=== PATIENT | female | born 1965 | race Caucasian/White ===

== ENCOUNTER 2016-06-11 17:10 | Emergency (ER) | payer MEDICARE ==
[2016-06-11] MEDS ORDERED: cefTRIAXone VIAL(*) 1,000 MG VIAL IM ONE (18:40)
[2016-06-11] MEDS ORDERED: Furosemide TAB* 40 MG PO ONE (18:41)
[2016-06-11] MEDS ORDERED: Furosemide TAB* 20 MG ONE (18:46)
[2016-06-11] MEDS ORDERED: Lidocaine 1% MPF* 2 ML VIAL ONE (18:47)
--- NOTE | 2016-06-11 18:58 | UC ---
Lower Extremity/Ankle HPI - HPI Summary HPI Summary: patient presents with bilateral swollen ankles and lower legs from the knee down , she does have a scab on the left leg which is where the infection may have started. Pt has HX of CHF, COPD, DM. denies any increase SOB. has neuropathy - History of Current Complaint Chief Complaint: UCLowerExtremity Stated Complaint: LEG PAIN Time Seen by Provider: 06/11/16 18:20 Hx Obtained From: Patient Hx Last Menstrual Period: 10yrs ?: No Onset/Duration: Sudden Onset, Lasting Days Severity Initially: Mild Severity Currently: Severe Pain Intensity: 4 Pain Scale Used: 0-10 Numeric Aggravating Factor(s): Standing, Ambulation Able to Bear Weight: Yes - Risk Factors Gout Risk Factors: Diabetes, Hypertension, Renal Disease, Peripherial Vascular Disease DVT Risk Factors: Smoking - Allergies/Home Medications Allergies/Adverse Reactions: Allergies Allergy/AdvReac Type Severity Reaction Status Date / Time Paroxetine Allergy Unknown Verified 06/11/16 18:22 Reaction Details Penicillins Allergy Unknown Verified 06/11/16 18:22 Reaction Details seasonal allergies Allergy Runny Nose Uncoded 06/11/16 18:22 Home Medications: Home Medications Budesonide NEB* [Pulmicort NEB*] 0.5 mg INH BID 06/11/16 [History Confirmed ] Ibuprofen TAB* [Advil TAB*] 800 mg PO Q6H PRN 06/11/16 [History Confirmed ] PMH/Surg Hx/FS Hx/Imm Hx Previously Healthy: Yes Endocrine History Of: Reports: Diabetes - takes Metformin Respiratory History Of: Reports: COPD, Bronchitis, Pneumonia Psychological History Of: Reports: Anxiety - Surgical History Surgical History: Yes Surgery Procedure, Year, and Place: Left foot x 3, last was 2010 - Family History Known Family History: Positive: Unknown, Hypertension - Social History Alcohol Use: None Alcohol Amount: none in 1 year Substance Use Type: None Substance Use Comment - Amount & Last Used: "CLEAN" FROM PAIN PILLS X 4 MOS Smoking Status (MU): Former Smoker Type: eCigarettes Amount Used/How Often: 1/3 PPD Length of Time of Smoking/Using Tobacco: 36 Years Have You Smoked in the Last Year: Yes When Did the Patient Quit Smoking/Using Tobacco: 8 MOS Household Exposure Type: Cigarettes - Immunization History Most Recent Influenza Vaccination: 8604-3421 Most Recent Tetanus Shot: unk Most Recent Pneumonia Vaccination: 2013 Review of Systems Constitutional: Negative Skin: Other - redness and bilateral swelling Eyes: Negative ENT: Negative Respiratory: Negative Cardiovascular: Negative Gastrointestinal: Negative Genitourinary: Negative Motor: Weakness Neurovascular: Decreased Sensation Musculoskeletal: Arthralgia, Decreased ROM, Edema, Myalgia Neurological: Negative Psychological: Negative All Other Systems Reviewed And Are Negative: Yes Physical Exam Triage Information Reviewed: Yes Appearance: Well-Nourished, Ill-Appearing, Pain Distress Vital Signs: Initial Vital Signs Temp 99.2 F 06/11/16 18:13 Pulse 96 06/11/16 18:13 Resp 20 06/11/16 18:13 BP 134/75 06/11/16 18:13 Pulse Ox 91 06/11/16 18:13 Vital Signs Reviewed: Yes Eye Exam: Normal Eyes: Positive: Conjunctiva Clear ENT Exam: Normal ENT: Positive: Normal ENT inspection, Hearing grossly normal, Pharynx normal, TMs normal Dental Exam: Normal Neck exam: Normal Neck: Positive: Supple, Nontender, No Lymphadenopathy Respiratory Exam: Normal Respiratory: Positive: Chest non-tender, Lungs clear, Normal breath sounds Cardiovascular Exam: Normal Cardiovascular: Positive: RRR, No Murmur, Pulses Normal Abdominal Exam: Normal Abdomen Description: Positive: Nontender, No Organomegaly, Soft Bowel Sounds: Positive: Present Musculoskeletal: Positive: ROM Limited @ - bilateral ankles, Edema @ - bilateral lower legs from the knee to toes, patient does not have any sensations , pedal pulses are Neurological Exam: Normal Neurological: Positive: Alert, Muscle Tone Normal Psychological Exam: Normal Skin: Positive: Other - scab, on left lower leg. Lower Extremity Course/Dx - Course Course Of Treatment: hx obtained, exam performed, talked with patient kayleeaminaandrae about going to ER and she is refusing. ABX and lasix given. Prescribed keflex, again attempted to get her to the ER and she refusing. - Differential Dx/Diagnosis Differential Diagnosis/HQI/PQRI: Cellulitis, Contusion, Dislocation, DVT, Infection, Phlebitis, Puncture Wound, Sprain, Strain, Tendonitis Provider Diagnoses: Bilateral lower leg cellulitis. diabetic neuropathy. bilatera lower leg swelling Discharge - Discharge Plan Condition: Stable Disposition: AGAINST MEDICAL ADVICE Prescriptions: Cephalexin CAP* [Keflex CAP*] 250 mg PO QID #28 cap Patient Education Materials: Cellulitis (ED) Referrals: Sachin Hagan DO [Primary Care Provider] - Additional Instructions: I am strongly recommending that you leave here and go to the ER for blood work and IV antibiotics, as we discussed you are at risk for infection and respiratory failure, even cardiac arrest. You were not in agreement at this time. You did receive a 1 gr dose of Rocephin and I prescribed keflex to continue treatment. Your weight today was 105, and you received a 20 mg dose of lasix. I highly advise you follow up in the ER if the swelling and redness persist, you become Short of breath, feverish or other symptoms arise.
[2016-06-11 19:23] VITALS: BP 155/73
== END 2016-06-11 19:29 | disposition left against medical advice (07) ==
LOC: UCCORT 17:10
DX: L03.116 Cellulitis of left lower limb (principal); L03.115 Cellulitis of right lower limb; M79.89 Other specified soft tissue disorders; E11.40 Type 2 diabetes mellitus with diabetic neuropathy, unspecified; Z79.84 Long term (current) use of oral hypoglycemic drugs; Z88.0 Allergy status to penicillin; Z88.8 Allergy status to other drugs, medicaments and biological substances; Z87.891 Personal history of nicotine dependence
CPT/HCPCS: 96372; 99213; A9270-GY; G0463; J0696

== ENCOUNTER 2016-06-25 12:07 | Emergency (ER) | payer MEDICARE ==
[2016-06-25 12:43] VITALS: BP 137/76
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
== END 2016-06-25 13:35 | disposition home or self-care (01) ==
LOC: UCCORT 12:07
DX: R56.9 Unspecified convulsions (principal); E11.9 Type 2 diabetes mellitus without complications; F41.9 Anxiety disorder, unspecified; K21.9 Gastro-esophageal reflux disease without esophagitis; Z79.82 Long term (current) use of aspirin; Z87.891 Personal history of nicotine dependence; Z88.0 Allergy status to penicillin; Z88.1 Allergy status to other antibiotic agents
CPT/HCPCS: 99212; G0463

== ENCOUNTER 2016-09-05 17:40 | Emergency (ER) | payer MEDICARE ==
[2016-09-05 17:59] VITALS: BP 145/69
[2016-09-05] MEDS ORDERED: Ipratropium 0.5MG/2.5ML NEB* 0.5 MG/2.5 ML NEB.SOLN INH ONE (18:31)
[2016-09-05] MEDS ORDERED: Albuterol 2.5 MG/3 ML NEB.SOL* (0.083%) INH ONE (18:31)
[2016-09-05] MEDS ORDERED: methylPREDNISolone 125 MG* 2 ML VIAL IM ONE (18:31)
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
[2016-09-05] MEDS ORDERED: Sulfamethox/Trimethoprim DS 800/160* TAB PO ONE (19:25)
== END 2016-09-05 19:55 | disposition home or self-care (01) ==
LOC: UCCORT 17:40
DX: J06.9 Acute upper respiratory infection, unspecified (principal); J44.1 Chronic obstructive pulmonary disease with (acute) exacerbation; J01.90 Acute sinusitis, unspecified; E11.9 Type 2 diabetes mellitus without complications; Z79.84 Long term (current) use of oral hypoglycemic drugs; I25.2 Old myocardial infarction; Z79.82 Long term (current) use of aspirin; K21.9 Gastro-esophageal reflux disease without esophagitis; F41.9 Anxiety disorder, unspecified; Z88.0 Allergy status to penicillin; Z87.891 Personal history of nicotine dependence
CPT/HCPCS: 96372; 99213; A9270-GY; G0463; J2930; J7644

== ENCOUNTER 2016-10-08 12:13 | Emergency (ER) | payer MEDICARE ==
--- NOTE | 2016-10-08 12:39 | UC ---
Epistaxis Nasal HPI - HPI Summary HPI Summary: Pt has been having nosebleeds for about a week; started just after discharge from the hospital. Was admitted for high blood pressure and d/dwight with increased meds for HTN. Epistaxis started with R side only, 1-2 times per day for as long as 2.5 hours, variable intensity. Today had L-sided bleed for the first time. Has seen Dr. Treadwell's office in the past, was hoping for cautery. Today's bleed lasted about 2 hours. - History of Current Complaint Stated Complaint: NOSE BLEED X 2 HOURS Time Seen by Provider: 10/08/16 12:27 Hx Obtained From: Patient Hx Last Menstrual Period: 10yrs ?: No Onset/Duration: Sudden Onset, Lasting Hours Timing: Constant Severity Initially: Moderate Severity Currently: Mild Character: Light Alleviating Factor(s): Pressure Associated Signs And Symptoms: Positive: Nasal Discharge - Allergies/Home Medications Allergies/Adverse Reactions: Allergies Allergy/AdvReac Type Severity Reaction Status Date / Time Paroxetine Allergy Unknown Verified 10/08/16 12:34 Reaction Details Penicillins Allergy Unknown Verified 10/08/16 12:34 Reaction Details seasonal allergies Allergy Runny Nose Uncoded 10/08/16 12:34 Home Medications: Home Medications Lisinopril TAB* [Prinivil TAB*] 20 mg PO QAM 10/08/16 [History Confirmed ] PMH/Surg Hx/FS Hx/Imm Hx Cardiovascular History: Hypertension Respiratory History: COPD Psychological History: Depression Other History Of: Anticoagulant Therapy - Aspirin 81 mg daily for health reasons. Negative For: HIV, Hepatitis B, Hepatitis C - Surgical History Surgical History: Yes Surgery Procedure, Year, and Place: Left foot x 3, last was 2010 - Family History Known Family History: Positive: Hypertension, Diabetes - Social History Alcohol Use: None Alcohol Amount: none in 1 year Substance Use Type: None Substance Use Comment - Amount & Last Used: "CLEAN" FROM PAIN PILLS X 4 MOS Smoking Status (MU): Former Smoker Type: eCigarettes Amount Used/How Often: 1/3 PPD Length of Time of Smoking/Using Tobacco: 36 Years Have You Smoked in the Last Year: Yes When Did the Patient Quit Smoking/Using Tobacco: 8 MOS Household Exposure Type: Cigarettes - Immunization History Most Recent Influenza Vaccination: 8633-1807 Most Recent Tetanus Shot: unk Most Recent Pneumonia Vaccination: 2014 Review of Systems Constitutional: Negative Skin: Negative Eyes: Negative ENT: Epistaxis Respiratory: Shortness Of Breath - chronic Cardiovascular: Negative Gastrointestinal: Negative Genitourinary: Negative Motor: Negative Neurovascular: Negative Musculoskeletal: Negative Neurological: Negative Psychological: Negative All Other Systems Reviewed And Are Negative: Yes Physical Exam Triage Information Reviewed: Yes Appearance: Cachectic Vital Signs Reviewed: Yes Eyes: Positive: Conjunctiva Clear ENT Exam: Other - pt unable to tolerate being off NC O2 for very long ENT: Positive: Hearing grossly normal, Pharynx normal - no blood in posterior pharynx, TMs normal, Other: - blood noted in bilat nares, no visible sites of bleeding, no active bleeding. Negative: Pharyngeal erythema Dental Exam: Other - dentures Neck exam: Normal Neck: Positive: Supple Respiratory: Positive: Decreased breath sounds - diffuse. Negative: Wheezing Cardiovascular: Positive: RRR, No Murmur Neurological Exam: Normal Neurological: Positive: Alert Psychological Exam: Normal Skin Exam: Normal Epistaxis Nasal Course/Dx - Differential Dx/Diagnosis Provider Diagnoses: bilat epistaxis Discharge - Discharge Plan Condition: Stable Disposition: HOME Patient Education Materials: Nosebleed (ED) Referrals: Felipe Treadwell MD [Medical Doctor] - Additional Instructions: As we discussed, I suspect the nasal cannula may be more to blame for your nosebleeds than the blood pressure. In any case, your ear, nose, and throat specialist should be able to help with evaluation and possible cautery early next week. Since you are not having active bleeding now and your vital signs are stable, you do not need to go to the emergency department today. However, if you develop prolonged or heavy bleeding that does not respond to firm constant pressure for 20-30 minutes, please go to the hospital right away.
[2016-10-08 12:49] VITALS: BP 143/71
== END 2016-10-08 13:26 | disposition home or self-care (01) ==
LOC: UCCORT 12:13
DX: R04.0 Epistaxis (principal); I10 Essential (primary) hypertension; J44.9 Chronic obstructive pulmonary disease, unspecified; F32.9 Major depressive disorder, single episode, unspecified; Z79.01 Long term (current) use of anticoagulants; Z88.0 Allergy status to penicillin; Z87.891 Personal history of nicotine dependence
CPT/HCPCS: 99212; G0463

== ENCOUNTER 2016-11-18 10:41 | Emergency (ER) | payer MEDICARE ==
--- NOTE | 2016-11-18 11:22 | UC ---
Lower Extremity/Ankle HPI - HPI Summary HPI Summary: 51 year old female with COPD , DM and severe malnutrition presents with concerns of severe bilateral lower extremity pain, swelling and erythema. - History of Current Complaint Stated Complaint: BILATERAL LEG COMPLAINT Time Seen by Provider: 11/18/16 11:22 Hx Last Menstrual Period: 10yrs - Allergies/Home Medications Allergies/Adverse Reactions: Allergies Allergy/AdvReac Type Severity Reaction Status Date / Time Paroxetine Allergy Unknown Verified 11/18/16 11:47 Reaction Details Penicillins Allergy Unknown Verified 11/18/16 11:47 Reaction Details seasonal allergies Allergy Runny Nose Uncoded 11/18/16 11:47 Home Medications: Home Medications Arformoterol (NF) [Brovana(NF)] 15 mcg INH BID 11/18/16 [History Confirmed 11/18] Budesonide NEB* [Pulmicort Neb*] 0.5 mg INH BID 11/18/16 [History Confirmed 07/02] Divalproex DR TAB(*) [Depakote DR TAB(*)] 500 mg PO BID 11/18/16 [History Confirmed 11/18/16] Roflumilast [Daliresp] 500 mcg PO DAILY 11/18/16 [History Confirmed 11/18/16] Tiotropium CAP.INH* [Spiriva CAP.INH*] 1 cap.inh INH DAILY 11/18/16 [History Confirmed 11/18/16] PMH/Surg Hx/FS Hx/Imm Hx Previously Healthy: Yes Other History Of: Anticoagulant Therapy - Aspirin 81 mg daily for health reasons. Negative For: HIV, Hepatitis B, Hepatitis C - Surgical History Surgical History: Yes Surgery Procedure, Year, and Place: Left foot x 3, last was 2010 - Family History Known Family History: Positive: Unknown, Hypertension, Diabetes - Social History Alcohol Use: None Alcohol Amount: none in 1 year Substance Use Type: None Substance Use Comment - Amount & Last Used: "CLEAN" FROM PAIN PILLS X 4 MOS Smoking Status (MU): Former Smoker Type: eCigarettes Amount Used/How Often: 1/3 PPD Length of Time of Smoking/Using Tobacco: 36 Years Have You Smoked in the Last Year: Yes When Did the Patient Quit Smoking/Using Tobacco: 8 MOS Household Exposure Type: Cigarettes - Immunization History Most Recent Influenza Vaccination: [id number] Most Recent Tetanus Shot: unk Most Recent Pneumonia Vaccination: 2014 Review of Systems Constitutional: Negative Skin: Other - bilateral extremity erythema Eyes: Negative ENT: Negative Respiratory: Negative Cardiovascular: Negative Gastrointestinal: Negative Genitourinary: Negative Motor: Negative Neurovascular: Negative Musculoskeletal: Calf Tenderness, Edema Neurological: Negative Psychological: Negative All Other Systems Reviewed And Are Negative: Yes Physical Exam Triage Information Reviewed: Yes Eye Exam: Normal ENT Exam: Normal Dental Exam: Normal Neck exam: Normal Neck: Positive: 1 Respiratory Exam: Normal Cardiovascular Exam: Normal Abdominal Exam: Normal Musculoskeletal: Positive: Edema @ Neurological Exam: Normal Psychological Exam: Normal Skin: Positive: Other - bilateral extremity erythema Lower Extremity Course/Dx - Differential Dx/Diagnosis Provider Diagnoses: EDEMA. PAD. VENOUS HYPERTENSION Discharge - Discharge Plan Condition: Stable Disposition: HOME Prescriptions: DOXYcycline CAP(*) [DOXYcycline 100MG CAP(*)] 100 mg PO BID #14 cap Furosemide [Lasix] 20 mg PO QAM #3 tab Patient Education Materials: Leg Pain (ED) Referrals: KITTY Ibrahim [Primary Care Provider] - Zackary Newton MD [Medical Doctor] -
[2016-11-18 11:47] VITALS: BP 139/77
[2016-11-18 19:04] LABS: Hematocrit 28 % (35-47); Hemoglobin 8.4 g/dl (12.0-16.0); Mean Corpuscular HGB Conc 30 g/dl (31-36); Mean Corpuscular Hemoglobin 23 pg (27-31); Mean Corpuscular Volume 77 fL (80-97); Mean Platelet Volume 10 um3 (7.4-10.4); Red Blood Count 3.65 10^6/ul (4.0-5.4); Red Cell Distribution Width 19 % (10.5-15); White Blood Count 6.3 10^3/ul (3.5-10.8)
[2016-11-18 19:16] LABS: Albumin 3.5 g/dL (3.2-5.2); BUN/Creatinine Ratio 7.7 (8-20); Calcium 8.4 mg/dL (8.6-10.3); EGFR African American 221.1 (>60); EGFR Non-African American 171.9 (>60); Globulin 2.6 g/dL (2-4); Potassium 4.7 mmol/L (3.5-5.0); Total Bilirubin 0.3 mg/dL (0.2-1.0); Total Protein 6.1 g/dL (6.4-8.9)
== END 2016-11-18 13:00 | disposition home or self-care (01) ==
LOC: UCCORT 10:41
DX: R60.0 Localized edema (principal); I73.9 Peripheral vascular disease, unspecified; I87.303 Chronic venous hypertension (idiopathic) without complications of bilateral lower extremity; Z88.0 Allergy status to penicillin; Z79.82 Long term (current) use of aspirin; Z87.891 Personal history of nicotine dependence
CPT/HCPCS: 36415; 80053; 85025; 99212; G0463

== ENCOUNTER 2016-11-28 15:59 | Emergency (ER) | payer MEDICARE ==
[2016-11-28 16:43] VITALS: BP 98/48
--- NOTE | 2016-11-28 16:59 | UC ---
Hip/Pelvis Pain - History Of Current Complaint Chief Complaint: UCBackPain Stated Complaint: S/P FALL-LOWER BACK PAIN Time Seen by Provider: 11/28/16 16:49 Hx Obtained From: Patient Hx Last Menstrual Period: 10yrs ?: No Onset/Duration: Sudden Onset - fell asleep standing up at 2 or 3 AM this morning. Landed on the left buttock., Still Present - feeling better with moving around. Timing: Constant Severity Initially: Moderate Severity Currently: Mild Location: Discrete At: - left buttock, Radiates To: - low back. Character Of Pain: Unable To Describe - it hurts. Aggravating Factor(s): Movement - initially Alleviating Factor(s): Other - movement Associated Signs And Symptoms: Positive: Swelling - Allergies/Home Medications Allergies/Adverse Reactions: Allergies Allergy/AdvReac Type Severity Reaction Status Date / Time Penicillins Allergy Unknown Verified 11/28/16 16:43 Reaction Details Paroxetine AdvReac Unknown Verified 11/28/16 16:44 Reaction Details seasonal allergies Allergy Runny Nose Uncoded 11/28/16 16:43 Home Medications: Home Medications Ibuprofen [Ibuprofen 200 MG] 400 mg PO Q6H PRN 11/28/16 [History Confirmed 11/28] PMH/Surg Hx/FS Hx/Imm Hx Endocrine History: Diabetes Cardiovascular History: Cardiac Disease, Hypertension Respiratory History: COPD Other History Of: Anticoagulant Therapy - Aspirin 81 mg daily for health reasons. Negative For: HIV, Hepatitis B, Hepatitis C - Surgical History Surgical History: Yes Surgery Procedure, Year, and Place: Left foot x 3, last was 2010 - Family History Known Family History: Positive: Unknown, Hypertension, Diabetes - Social History Occupation: Disabled Lives: With Family Alcohol Use: None Alcohol Amount: none in 1 year Substance Use Type: None Substance Use Comment - Amount & Last Used: "CLEAN" FROM PAIN PILLS X 4 MOS Smoking Status (MU): Former Smoker Type: eCigarettes Amount Used/How Often: 1/3 PPD Length of Time of Smoking/Using Tobacco: 36 Years Have You Smoked in the Last Year: Yes When Did the Patient Quit Smoking/Using Tobacco: 2016 Household Exposure Type: Cigarettes - Immunization History Most Recent Influenza Vaccination: [id number] Most Recent Tetanus Shot: unk Most Recent Pneumonia Vaccination: 2013 Review of Systems Musculoskeletal: Arthralgia All Other Systems Reviewed And Are Negative: Yes Physical Exam Triage Information Reviewed: Yes Appearance: Well-Appearing, No Pain Distress - at rest., Cachectic Vital Signs: Initial Vital Signs Temp 99.5 F 11/28/16 16:35 Pulse 106 11/28/16 16:35 Resp 28 11/28/16 16:35 BP 98/48 11/28/16 16:35 Pulse Ox 98 11/28/16 16:35 Vital Signs Reviewed: Yes Eyes: Positive: Conjunctiva Inflamed Neck exam: Normal Respiratory: Positive: Decreased breath sounds Cardiovascular: Positive: RRR Musculoskeletal: Positive: ROM Limited @ - Lumbar spine and left hip Neurological Exam: Normal Psychological Exam: Normal Skin: Positive: Other - Large swelling in the left buttocks, very tender Hip Injury Course/Dx - Differential Dx/Diagnosis Differential Diagnosis/HQI/PQRI: Contusion, Fracture, Hematoma Provider Diagnoses: Contusion Left Buttocks. Hematoma Left buttocks. Discharge - Discharge Plan Condition: Stable Disposition: HOME Patient Education Materials: Contusion in Adults (ED), Hematoma (ED) Referrals: KITTY Ibrahim [Primary Care Provider] - 5 Days (Recheck the swelling ) Additional Instructions: Use cold packs for the first 48 hours then hot packs. If you get weakness or numbness go to the ER. Please go to Physical Therapy.
== END 2016-11-28 17:29 | disposition home or self-care (01) ==
LOC: UCCORT 15:59
DX: S30.0XXA Contusion of lower back and pelvis, initial encounter (principal); W18.30XA Fall on same level, unspecified, initial encounter; Y93.9 Activity, unspecified; Y92.9 Unspecified place or not applicable; E11.9 Type 2 diabetes mellitus without complications; I51.9 Heart disease, unspecified; I10 Essential (primary) hypertension; J44.9 Chronic obstructive pulmonary disease, unspecified; Z79.82 Long term (current) use of aspirin; Z88.0 Allergy status to penicillin; Z87.891 Personal history of nicotine dependence
CPT/HCPCS: 99212; G0463

== ENCOUNTER 2017-07-29 09:03 | Emergency (ER) | payer MEDICARE ==
--- NOTE | 2017-07-29 10:36 | UC ---
Lower Extremity/Ankle HPI - HPI Summary HPI Summary: pt is c/o increasing swelling to both low legs over the past week. she also notes that they are red and sore. she has had the same before and was tx with an antibiotic(doxycycline). her legs got better with that. she denies any cp but admits to sob which is chronic from her copd. denies hx DVT. Denies fever and notes that her BS is unchanged with this. - History of Current Complaint Chief Complaint: UCLowerExtremity Stated Complaint: KALI LEG SWELLING Time Seen by Provider: 07/29/17 10:27 Hx Obtained From: Patient Hx Last Menstrual Period: 10yrs Onset/Duration: Gradual Onset Pain Intensity: 10 Aggravating Factor(s): Nothing Alleviating Factor(s): Elevation Able to Bear Weight: Yes - Risk Factors Septic Arthritis Risk Factor: Negative - Allergies/Home Medications Allergies/Adverse Reactions: Allergies Allergy/AdvReac Type Severity Reaction Status Date / Time Penicillins Allergy Unknown Verified 07/29/17 10:22 Reaction Details paroxetine AdvReac Vomiting Verified 07/29/17 10:22 seasonal allergies Allergy Runny Nose Uncoded 07/29/17 10:22 Home Medications: Home Medications Lisinopril TAB* [Prinivil TAB*] 20 mg PO DAILY 07/29/17 [History Confirmed 07/29] metFORMIN* [Glucophage 1000 MG TAB *] 1,000 mg PO BID 07/29/17 [History Confirmed 07/29/17] PMH/Surg Hx/FS Hx/Imm Hx - Additional Past Medical History Additional PMH: hx leg edema, cellulitis to legs Endocrine History: Diabetes Respiratory History: COPD - O2 required GI/ History: Gastroesophageal Reflux Other History Of: Anticoagulant Therapy - Aspirin 81 mg daily for health reasons. Negative For: HIV, Hepatitis B, Hepatitis C - Surgical History Surgical History: Yes Surgery Procedure, Year, and Place: Left foot x 3, last was 2009 - Family History Known Family History: Positive: Unknown, Hypertension, Diabetes - Social History Occupation: Disabled Lives: With Family Alcohol Use: None Alcohol Amount: none in 1 year Substance Use Type: None Substance Use Comment - Amount & Last Used: "CLEAN" FROM PAIN PILLS X 4 MOS Smoking Status (MU): Former Smoker Type: eCigarettes Amount Used/How Often: 1/3 PPD Length of Time of Smoking/Using Tobacco: 36 Years Have You Smoked in the Last Year: Yes When Did the Patient Quit Smoking/Using Tobacco: 2016 Household Exposure Type: Cigarettes - Immunization History Most Recent Influenza Vaccination: [id number] Most Recent Tetanus Shot: unk Most Recent Pneumonia Vaccination: 2013 Vaccination Up to Date: Yes Review of Systems Constitutional: Negative Skin: Rash - both lower legs Eyes: Negative ENT: Negative Respiratory: Negative Cardiovascular: Negative Gastrointestinal: Negative Genitourinary: Negative Motor: Negative Neurovascular: Negative Musculoskeletal: Edema - Both lower legs Neurological: Negative Psychological: Negative All Other Systems Reviewed And Are Negative: Yes Physical Exam Triage Information Reviewed: Yes Appearance: Well-Appearing, Thin - apperas older than stated age Vital Signs: Initial Vital Signs Temp 98.2 F 07/29/17 10:12 Pulse 112 07/29/17 10:12 Resp 20 07/29/17 10:12 BP 118/70 07/29/17 10:12 Pulse Ox 94 07/29/17 10:12 Vital Signs Reviewed: Yes Eyes: Positive: Conjunctiva Clear ENT: Positive: Normal ENT inspection Neck: Positive: Supple, Nontender, No Lymphadenopathy, Other: - no jvd Respiratory: Positive: Lungs clear, No respiratory distress, Decreased breath sounds Cardiovascular: Positive: RRR, No Murmur, Other: - not tachycardic on exam Abdomen Description: Positive: Nontender, No Organomegaly, Soft Bowel Sounds: Positive: Present Neurological: Positive: Alert Psychological: Positive: Age Appropriate Behavior Skin Exam: Normal, Other - BLE: erythema, mild swelling and warmth just below the knees down. pt c/o calf tenderness but no cords. cap refill < 2 seconds x2. gross s/m is intact. normal steady gait. no venous stasis changes and no hair on legs. Diagnostics - Laboratory Diagnostic Studies Completed/Ordered: u/a=NO DFVT ble'S. hr 82 AT REST. NON TOXIC. WILL TX THE CELLULITIS. NEED FOR CLOSE F/U STRESSES. - Radiology No standard instances Xray Interpretation: No Acute Changes Radiology Interpretation Completed By: Radiologist - NO DVT'S Lower Extremity Course/Dx - Course Course Of Treatment: NON TOXIC AND NO DVT, WILL TX CELLULITIS - Differential Dx/Diagnosis Provider Diagnoses: cellulitis both lower legs Discharge - Sign-Out/Discharge Documenting (check all that apply): Discharge - Discharge Plan Condition: Stable Disposition: HOME Prescriptions: DOXYcycline CAP(*) [DOXYcycline 100MG CAP(*)] 100 mg PO BID #20 cap Patient Education Materials: Cellulitis (DC) Referrals: KITTY Lowery [Primary Care Provider] - 2 Days Additional Instructions: you must follow up for the recheck. go to the er for any worsening - Billing Disposition and Condition Condition: STABLE Disposition: HOME
--- NOTE | 2017-07-29 12:23 | RAD ---
HISTORY: Acute swelling with calf pain COMPARISONS: None relevant TECHNIQUE: Multiple transverse and longitudinal ultrasound images were obtained of the bilateral lower extremities from the level of the common femoral vein inferiorly through to the infrapopliteal veins using grayscale, color Doppler, and spectral Doppler imaging with and without compression and with augmentation. FINDINGS: VEINS: The venous system of the bilateral lower extremities is compressible throughout its course, with normal flow on color Doppler imaging and normal response to augmentation on spectral Doppler imaging. SOFT TISSUES: There is a benign-appearing uniform lymph node with a fatty hilum of the left inguinal region measuring 0.6 cm in short axis. There is no lymphadenopathy by size criteria. OTHER FINDINGS: There is subcutaneous edema of the lower extremity. IMPRESSION: NO RIGHT LOWER EXTREMITY DEEP VEIN THROMBOSIS. NO LEFT LOWER EXTREMITY DEEP VEIN THROMBOSIS
[2017-07-29 12:26] VITALS: BP 101/73
[2017-07-29] MEDS ORDERED: DOXYcycline CAP(*) 100 MG PO ONE (12:48)
== END 2017-07-29 13:02 | disposition home or self-care (01) ==
LOC: UCCORT 09:03
DX: L03.116 Cellulitis of left lower limb (principal); L03.115 Cellulitis of right lower limb; Z87.891 Personal history of nicotine dependence; Z88.0 Allergy status to penicillin; Z88.8 Allergy status to other drugs, medicaments and biological substances
CPT/HCPCS: 93970; 99212; A9270-GY; G0463

== ENCOUNTER 2017-08-08 14:02 | Emergency (ER) | payer MEDICARE ==
[2017-08-08 14:38] VITALS: BP 99/58
--- NOTE | 2017-08-08 14:39 | UC ---
Hand/Wrist HPI - HPI Summary HPI Summary: tripped on her oxygen tubing last pm causing her to fall and hurt her R hand. she is c/o pain and swelling to her hand. denies any other injury. no other complaints. - History Of Current Complaint Stated Complaint: S/P FALL RIGHT PINKIE INJURY Time Seen by Provider: 08/08/17 14:28 Hx Obtained From: Patient Hx Last Menstrual Period: 10yrs Onset/Duration: Sudden Onset Aggravating Factor(s): Movement Alleviating Factor(s): Nothing Associated Signs And Symptoms: Positive: Swelling, Bruising. Negative: Numbness /Tingling - Allergies/Home Medications Allergies/Adverse Reactions: Allergies Allergy/AdvReac Type Severity Reaction Status Date / Time Penicillins Allergy Unknown Verified 07/29/17 10:22 Reaction Details paroxetine AdvReac Vomiting Verified 07/29/17 10:22 seasonal allergies Allergy Runny Nose Uncoded 07/29/17 10:22 PMH/Surg Hx/FS Hx/Imm Hx Endocrine History: Diabetes Cardiovascular History: Hypertension Respiratory History: COPD Other History Of: Anticoagulant Therapy - Aspirin 81 mg daily for health reasons. Negative For: HIV, Hepatitis B, Hepatitis C - Surgical History Surgical History: Yes Surgery Procedure, Year, and Place: Left foot x 3, last was 2009 - Family History Known Family History: Positive: Unknown, Hypertension, Diabetes - Social History Occupation: Disabled Lives: With Family Alcohol Use: None Alcohol Amount: none in 1 year Substance Use Type: None Substance Use Comment - Amount & Last Used: "CLEAN" FROM PAIN PILLS X 4 MOS Smoking Status (MU): Former Smoker Type: eCigarettes Amount Used/How Often: 1/3 PPD Length of Time of Smoking/Using Tobacco: 36 Years Have You Smoked in the Last Year: Yes When Did the Patient Quit Smoking/Using Tobacco: 2016 Household Exposure Type: Cigarettes - Immunization History Most Recent Influenza Vaccination: [id number] Most Recent Tetanus Shot: unk Most Recent Pneumonia Vaccination: 2014 Vaccination Up to Date: Yes Review of Systems Constitutional: Negative Skin: Negative Eyes: Negative ENT: Negative Respiratory: Shortness Of Breath - chronic and unchanged Cardiovascular: Negative Gastrointestinal: Negative Genitourinary: Negative Motor: Negative Neurovascular: Negative Musculoskeletal: Other: - Pain, swelling R hand Neurological: Negative Psychological: Negative All Other Systems Reviewed And Are Negative: Yes Physical Exam Triage Information Reviewed: Yes Appearance: Well-Appearing Vital Signs Reviewed: Yes Eyes: Positive: Conjunctiva Clear ENT: Positive: Normal ENT inspection Neck: Positive: Supple, Nontender, No Lymphadenopathy Respiratory: Positive: Lungs clear, No respiratory distress, Decreased breath sounds Cardiovascular: Positive: RRR, No Murmur Abdomen Description: Positive: Nontender, No Organomegaly, Soft Bowel Sounds: Positive: Present Musculoskeletal: Positive: Other: - RUE: shoulder, elbow, wrist non traumatic. R dorsal hand with bruising, swelling and tenderness ulnar side. gross s/v/m is intact. Neurological: Positive: Alert Psychological: Positive: Age Appropriate Behavior Skin Exam: Normal Procedures - Procedure Summary Procedure Summary: Volar splint with fiberglass applied to R hand with joints above and below fx immobilized. gross s/v to finger tips intact after. Diagnostics - Radiology No standard instances Radiology Interpretation Completed By: Radiologist - oblique fx 5th finger-see report Hand/Wrist Course/Dx - Course Course Of Treatment: MEWS + but no concern for sepsis. 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 - Differential Dx/Diagnosis Provider Diagnoses: Fracture R 5th finger Discharge - Sign-Out/Discharge Documenting (check all that apply): Discharge/Admit/Transfer - Discharge Plan Condition: Stable Disposition: HOME Patient Education Materials: Hand Fracture (ED), Splint Care (ED) Referrals: KITTY Lowery [Primary Care Provider] - If Needed Micky Manrique MD [Medical Doctor] - 1 Day Additional Instructions: keep splinted until orthopedic follow up - Billing Disposition and Condition Condition: STABLE Disposition: HOME
--- NOTE | 2017-08-08 15:11 | RAD ---
HISTORY: Right hand pain, fall COMPARISONS: None VIEWS: 5, Frontal, lateral, and oblique views of the right hand with frontal and oblique views of the fifth digit FINDINGS: BONE DENSITY: Normal. BONES: There is an oblique, nondisplaced fracture of the proximal phalanx of the fifth digit JOINTS: There is no arthropathy. ALIGNMENT: There is no dislocation. SOFT TISSUES: Unremarkable. OTHER FINDINGS: None. IMPRESSION: OBLIQUE, NONDISPLACED FRACTURE OF THE PROXIMAL PHALANX OF THE FIFTH DIGIT
== END 2017-08-08 15:45 | disposition home or self-care (01) ==
LOC: UCCORT 14:02
DX: S62.646A Nondisplaced fracture of proximal phalanx of right little finger, initial encounter for closed fracture (principal); W01.0XXA Fall on same level from slipping, tripping and stumbling without subsequent striking against object, initial encounter; Y92.9 Unspecified place or not applicable; F17.290 Nicotine dependence, other tobacco product, uncomplicated; Z88.0 Allergy status to penicillin; Z88.8 Allergy status to other drugs, medicaments and biological substances
CPT/HCPCS: 99212; G0463

== ENCOUNTER 2018-04-09 17:10 | Emergency (ER) | payer OTHER ==
[2018-04-09] MEDS ORDERED: Albuterol 2.5 MG/3 ML NEB.SOL* (0.083%) INH ONE ×2 (17:39→17:49)
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
[2018-04-09 17:53] VITALS: BP 157/87
== END 2018-04-09 19:50 | disposition home or self-care (01) ==
LOC: UCCORT 17:10
DX: R04.0 Epistaxis (principal); Z88.0 Allergy status to penicillin; Z88.8 Allergy status to other drugs, medicaments and biological substances; I10 Essential (primary) hypertension; E11.9 Type 2 diabetes mellitus without complications; Z87.891 Personal history of nicotine dependence; Z99.81 Dependence on supplemental oxygen
CPT/HCPCS: 30901; 99215; G0463

== ENCOUNTER 2019-05-08 09:41 | Emergency (ER) | payer OTHER ==
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
--- OUTSIDE RECORDS SUMMARY | 2019-05-08 10:10 | XMS REPORT | Continuity of Care Document ---
:1965 External Reference #:[id number] Author Name Sarita Villanueva, SBA BUSINESS DEVELOPMENT OFFICER Address [address] [place] [address] Care Team Providers Name Role Phone Gege Montiel FNP - Family Care Team Information Certified Home Health Aide [phone] Problems Active Problems Provider Date Cellulitis Ross Joyner M.D. Onset: 02/28/2013 Weight decreased Ross Joyner M.D. Onset: 02/28/2013 Tobacco user Ross Joyner M.D. Onset: 02/28/2013 Anemia Elizabeth Dinero DO Onset: 02/23/2017 Iron deficiency Elizabeth Dinero DO Onset: 02/23/2017 Vitamin B deficiency Elizabeth Dinero DO Onset: 02/23/2017 Chronic obstructive lung disease Elizabeth Dinero DO Onset: 02/17/2018 Hypoxemia Shellie Mendieta PA Onset: 08/24/2018 Personal history of other specified Shellie Mendieta PA Onset: 05/26/2018 conditions Vitamin deficiency Elizabeth Dinero DO Onset: 05/05/2018 Social History Type Date Description Comments Sex Unknown Tobacco Use Start: Unknown End: Quit 1PPD x 50 years, Unknown quit at age 49, uses E-cigs daily Smoking Status Reviewed: 02/20/19 Quit 1PPD x 50 years, quit at age 49, uses E-cigs daily Smokeless Tobacco Never Used Smokeless Tobacco ETOH Use Has consumed alcohol in stopped 2013 the past Recreational Drug Use Formerly used Cocaine regularly Tobacco Use Start: Unknown End: Patient is a former QUIT age 49, E-cigs Unknown smoker daily/all day long with nicotine Recreational Drug Use HX of abuse of prescription narcotics Recreational Drug Use 06/2018 Heroin Allergies, Adverse Reactions, Alerts Active Allergies Reaction Severity Comments Date Penicillin 11/27/2012 Paroxetine 11/05/2015 Medications Active Medications SIG Qnty Indications Ordering Date Provider Symbicort inhale two puffs 10.200gm Leandro Edwards MD 11/08/2018 by mouth twice a 160-4.5mcg/Act day Aerosol Ensure 1 bottle po tid 90units Boufal, 03/08/2018 DO Elizabeth Theophylline ER take 1 tablet 30tabs JAsh Gutierrez-Lucie, 02/03/2017 400mg daily. MD Paulo Tablets ER 24HR Nebulizer please provide 1units Leandro Rizzo MD 01/18/2017 Kit/Tubing/Mouthpiec patient with 1 e kit. nebulizer, Kit tubing, mouth piece. diagnosis: copd Daliresp 1 by mouth every 30tabs Leandro Rizzo MD 10/28/2016 500mcg day Tablets Spiriva Respimat take 2 puffs once 4gm Leandro Rizzo MD 10/28/2016 daily. 2.5mcg/Act Aerosol Ventolin HFA take 2 puffs 18gm Laendro Rizzo MD 03/23/2016 every 6 hours as 108(90Base) mcg/Act needed for Aerosol shortness of breath. Aspirin 1 po qd 90tabs Unknown 81mg Tablets Metformin HCL take 1 tablet by Unknown 1000mg mouth twice a day Tablets Ibuprofen Take 1 Tab By Unknown 400mg Mouth Every 8 Tablets Hours as Needed Buspirone HCL 1 po tid Unknown 15mg Tablets Albuterol Sulfate inhale contents 270ml Leandro Rizzo MD of 1 vial in (2.5mg/3ML) 0.083% nebulizer every 4 Nebulizer hours if needed for cooper Hydroxyzine HCL Take 1 Tab By Unknown 25mg Mouth Every 6 Tablets Hours as Needed For Anxiety Divalproex Sodium take 1 tablet by Unknown mouth every [address] hours Calcium 600 1 by mouth twice Unknown 600mg a day Tablets Lisinopril 1 tab qd Tapia, 20mg VIKTORIYA Cooney Tablets Medications Administered in Office Medication SIG Qnty Indications Ordering Provider Date Vitamin B12 Injection 1000 Oncology Nurse 07/24/2018 mcg/Ml Injection Vitamin B12 Injection 1000 Oncology Nurse 07/17/2018 mcg/Ml Injection Vitamin B12 Injection 1000 Unknown 06/07/2018 mcg/Ml Injection Vitamin B12 Injection 1000 Oncology Nurse 06/07/2018 mcg/Ml Injection Vitamin B12 Injection 1000 Oncology Nurse 05/24/2018 mcg/Ml Injection Vitamin B12 Injection 1000 Antonio Zhou, DO 05/24/2018 mcg/Ml Injection Vitamin B12 Injection 1000 Sarita Villanueva, VIKTORIYA 08/26/2017 mcg/Ml Injection Theraputic Or Diagnostic Sarita Villanueva NP 08/26/2017 Injection Injection Vitamin B12 Injection 1000 Elizabeth iDnero, DO 02/23/2017 mcg/Ml Injection Theraputic Or Diagnostic Elizabeth Dinero, DO 02/23/2017 Injection Injection Immunizations Description No Information Available Vital Signs Date Vital Result Comment 04/09/2019 1:07pm BP Systolic 123 mmHg BP Diastolic 74 mmHg Body Temperature 98.3 F Heart Rate 100 /min Respiratory Rate 24 /min Weight 91.25 lb Pain Level 10 feet O2 % BldC Oximetry 98 % 02/20/2019 1:09pm BP Systolic Sitting Left Arm 126 mmHg BP Diastolic Sitting Left Arm 78 mmHg Heart Rate 85 /min Respiratory Rate 16 /min Height 63 inches 5'3" Weight 87.00 lb BMI (Body Mass Index) 15.4 kg/m2 BSA (Body Surface Area) 1.36 m2 [place] body weight in kilograms 52 kg O2 % BldC Oximetry 97 % nc/2l Results Test Acquired Date Facility Test Result H/L Range Note CBC 04/09/2019 [facility] White Blood 4.4 K/uL Normal 3.1-10.7 1 W/Automated [address] [place] [address] [phone] Red Blood Count 3.54 M/uL Low 3.90-5.40 Hemoglobin 11.2 gm/dL Low 11.6-15.8 Hematocrit 36.6 % Normal 36.0-46.1 Mean Cell Volume 103.4 fl High 80.9-99.0 Mean Corpuscular HGB 31.6 pg Normal 25.9-32.7 Mean Corpuscular HGB Conc 30.6 g/dL Low 30.8-34.3 Platelet Count 189 K/uL Normal 155-360 Red Cell Distri Width SD 56.2 fl High 36-47 Red Cell Distri Width %CV 14.7 % High 11.7-14.4 Mean Platelet Volume 10.8 fl Normal 8.9-12.4 Neut% 51.4 % Normal 40.4-72.8 Lymph % 30.2 % Normal 20.0-42.0 Ashley % 12.6 % Normal 4.3-13.2 Eo% 4.6 % Normal 0.0-6.6 Bas% 0.5 % Normal 0.0-1.1 Immature Grans 0.7 % Normal 0.0-5.0 NRBC % 0.0 /100WBC < 10/ 100 WBC Neut# 2.25 K/uL Normal 1.8-7.0 Lymph # 1.32 K/uL Normal 1.0-4.0 Ashley # 0.55 K/uL Normal 0.3-0.9 Eos # 0.20 K/uL Normal 0.0-0.5 Baso # 0.02 K/uL Normal 0.0-0.1 Immature Grans Absolute 0.03 K/uL NRBC # 0.00 K/uL Iron-Tibc-%Sat 04/09/2019 [facility] Serum Iron 85 g/dL Normal 50-170 [address] [place], [place] [id number] [phone] Total Iron Binding Capacity 390 g/dL Normal 250-450 Transferrin %Saturation 22 % Normal 12-57 Laboratory test 04/09/2019 [facility] Ferritin 61 ng/mL Normal 8-252 2 finding [address] [place], [place] [id number] [phone] Vitamin B12 And 04/09/2019 [facility] Vitamin B12 575 pg/mL Normal 193-986 Folate [address] [place] [address] [phone] Folic Acid > 20.0 ng/mL High 3.1-17.5 CBC W/Automated 02/27/2019 [facility] White Blood 7.0 K/uL Normal 3.1-10.7 3 Diff [address] [facility] Count [place], [place] [id number] [phone] Red Blood Count 3.77 M/uL Low 3.90-5.40 Hemoglobin 11.4 gm/dL Low 11.6-15.8 Hematocrit 38.0 % Normal 36.0-46.1 Mean Cell Volume 100.8 fl High 80.9-99.0 Mean Corpuscular HGB 30.2 pg Normal 25.9-32.7 Mean Corpuscular HGB Conc 30.0 g/dL Low 30.8-34.3 Platelet Count 151 K/uL Low 155-360 Red Cell Distri Width SD 60.7 fl High 36-47 Red Cell Distri Width %CV 16.5 % High 11.7-14.4 Mean Platelet Volume 12.2 fl Normal 8.9-12.4 Neut% 64.0 % Normal 40.4-72.8 Lymph % 20.8 % Normal 20.0-42.0 Ashley % 10.6 % Normal 4.3-13.2 Eo% 3.9 % Normal 0.0-6.6 Bas% 0.4 % Normal 0.0-1.1 Immature Grans 0.3 % Normal 0.0-5.0 NRBC % 0.0 /100WBC < 10/ 100 WBC Neut# 4.47 K/uL Normal 1.8-7.0 Lymph # 1.45 K/uL Normal 1.0-4.0 Ashley # 0.74 K/uL Normal 0.3-0.9 Eos # 0.27 K/uL Normal 0.0-0.5 Baso # 0.03 K/uL Normal 0.0-0.1 Immature Grans Absolute 0.02 K/uL NRBC # 0.00 K/uL Comprehensive 02/27/2019 [facility] Glucose 85 mg/dL Normal 74-106 Metabolic Panel [address] [place] [address] [phone] BUN 15 mg/dL Normal 7-18 Creatinine 0.5 mg/dL Low 0.6-1.3 Glom Filtration Rate, Estimate >60 mL/min >60 If >60 mL/min >60 4 BUN/Creat 30.0 ratio Sodium 136 mmol/L Normal 136-145 Potassium 4.0 mmol/L Normal 3.5-5.1 Chloride 88 mmol/L Critical low 98-107 Carbon Dioxide 45 mmol/L Critical high 21-32 Anion Gap 3 mEq/L Low 8-16 Calcium 8.3 mg/dL Low 8.5-10.1 Total Protein 6.9 g/dL Normal 6.4-8.2 Albumin 3.6 g/dL Normal 3.4-5.0 Globulin 3.3 g/dL Normal 1.9-4.3 Alb/Glob 1.1 ratio Bilirubin,Total 0.2 mg/dL Normal 0.2-1.0 Sgot/Ast < 3 U/L Critical low 15-37 5 SGPT/Alt 12 U/L Normal 12-78 Alkaline Phosphatase 64 U/L Normal 45-117 Iron-Tibc-%Sat 02/27/2019 [facility] Serum Iron 70 g/dL Normal 50-170 [address] [place] [address] [phone] Total Iron Binding Capacity 377 g/dL Normal 250-450 Transferrin %Saturation 19 % Normal 12-57 Laboratory test 02/27/2019 [facility] Ferritin 91 ng/mL Normal 8-252 finding [address] [place] [address] [phone] Vitamin B12 And 02/27/2019 [facility] Vitamin B12 676 pg/mL Normal 193-986 Folate [address] [place] [address] [phone] Folic Acid 13.2 ng/mL Normal 3.1-17.5 Vitamin B12 And 02/01/2019 [facility] Vitamin B12 390 pg/mL Normal 193-986 6 Folate [address] [place] [address] [phone] Folic Acid 17.8 ng/mL High 3.1-17.5 Laboratory test 02/01/2019 [facility] Ferritin 35 ng/mL Normal 8-252 7 finding [address] [place] [address] [phone] Iron-Tibc-%Sat 02/01/2019 [facility] Serum Iron 49 g/dL Low 50-170 [address] [place] [address] [phone] Total Iron Binding Capacity 339 g/dL Normal 250-450 Transferrin %Saturation 14 % Normal 12-57 Comprehensive Metabolic 02/01/2019 [facility] Glucose 135 mg/dL High 74-106 Panel [address] [place] [address] [phone] BUN 26 mg/dL High 7-18 Creatinine 0.6 mg/dL Normal 0.6-1.3 Glom Filtration Rate, Estimate >60 mL/min >60 If >60 mL/min >60 8 BUN/Creat 43.3 ratio Sodium 134 mmol/L Low 136-145 Potassium 4.9 mmol/L Normal 3.5-5.1 Chloride 92 mmol/L Low 98-107 Carbon Dioxide 44 mmol/L Critical high 21-32 Anion Gap -2 mEq/L Low 8-16 Calcium 8.4 mg/dL Low 8.5-10.1 Total Protein 6.8 g/dL Normal 6.4-8.2 Albumin 3.5 g/dL Normal 3.4-5.0 Globulin 3.3 g/dL Normal 1.9-4.3 Alb/Glob 1.1 ratio Bilirubin,Total 0.2 mg/dL Normal 0.2-1.0 Sgot/Ast 8 U/L Low 15-37 9 SGPT/Alt 11 U/L Low 12-78 10 Alkaline Phosphatase 69 U/L Normal 45-117 CBC W/Automated 02/01/2019 [facility] White Blood 4.9 K/uL Normal 3.1-10.[address] [place] [address] [phone] Red Blood Count 3.49 M/uL Low 3.90-5.40 Hemoglobin 10.4 gm/dL Low 11.6-15.8 Hematocrit 33.8 % Low 36.0-46.1 Mean Cell Volume 96.8 fl Normal 80.9-99.0 Mean Corpuscular HGB 29.8 pg Normal 25.9-32.7 Mean Corpuscular HGB Conc 30.8 g/dL Normal 30.8-34.3 Platelet Count 120 K/uL Low 155-360 Red Cell Distri Width SD 53.0 fl High 36-47 Red Cell Distri Width %CV 15.0 % High 11.7-14.4 Mean Platelet Volume 12.7 fl High 8.9-12.4 Neut% 62.8 % Normal 40.4-72.8 Lymph % 22.8 % Normal 20.0-42.0 Ashley % 9.1 % Normal 4.3-13.2 Eo% 4.5 % Normal 0.0-6.6 Bas% 0.6 % Normal 0.0-1.1 Immature Grans 0.2 % Normal 0.0-5.0 NRBC % 0.0 /100WBC < 10/ 100 WBC Neut# 3.05 K/uL Normal 1.8-7.0 Lymph # 1.11 K/uL Normal 1.0-4.0 Ashley # 0.44 K/uL Normal 0.3-0.9 Eos # 0.22 K/uL Normal 0.0-0.5 Baso # 0.03 K/uL Normal 0.0-0.1 Immature Grans Absolute 0.01 K/uL NRBC # 0.00 K/uL Venous Blood 12/14/2018 [facility] Venous Blood 7.32 Normal 7.31-7.[address] Gas pH [place], [place] [id number] [phone] Venous Blood Gas Pco2 83 mmHg High 45-50 Venous Blood Gas Po2 28 mmHg Low 40-60 Venous Blood Gas Hco3 41.5 mEq/L Venous Blood Gas Base XS 12.1 mEq/L Venous Blood Gas OS Sat. 43.6 % Low 60-80 CBC W/Automated 12/13/2018 [facility] White 4.5 K/uL Normal 3.1-10.7 [address] [place] [address] Count [phone] Red Blood Count 3.61 M/uL Low 3.90-5.40 Hemoglobin 11.0 gm/dL Low 11.6-15.8 Hematocrit 34.9 % Low 36.0-46.1 Mean Cell Volume 96.7 fl Normal 80.9-99.0 Mean Corpuscular HGB 30.5 pg Normal 25.9-32.7 Mean Corpuscular HGB Conc 31.5 g/dL Normal 30.8-34.3 Platelet Count 156 K/uL Normal 155-360 Red Cell Distri Width SD 53.5 fl High 36-47 Red Cell Distri Width %CV 15.0 % High 11.7-14.4 Mean Platelet Volume 11.6 fl Normal 8.9-12.4 Neut% 55.4 % Normal 40.4-72.8 Lymph % 28.1 % Normal 20.0-42.0 Ashley % 12.8 % Normal 4.3-13.2 Eo% 2.9 % Normal 0.0-6.6 Bas% 0.4 % Normal 0.0-1.1 Immature Grans 0.4 % Normal 0.0-5.0 NRBC % 0.0 /100WBC < 10/ 100 WBC Neut# 2.46 K/uL Normal 1.8-7.0 Lymph # 1.25 K/uL Normal 1.0-4.0 Ashley # 0.57 K/uL Normal 0.3-0.9 Eos # 0.13 K/uL Normal 0.0-0.5 Baso # 0.02 K/uL Normal 0.0-0.1 Immature Grans Absolute 0.02 K/uL NRBC # 0.00 K/uL Comprehensive Metabolic 12/13/2018 [facility] Glucose 145 mg/dL High 74-106 Panel [address] [place] [address] [phone] BUN 18 mg/dL Normal 7-18 Creatinine 0.8 mg/dL 0.6-1.3 Glom Filtration Rate, Estimate >60 mL/min >60 If >60 mL/min >60 13 BUN/Creat 22.5 ratio Sodium 136 mmol/L Normal 136-145 Potassium 4.1 mmol/L Normal 3.5-5.1 Chloride 93 mmol/L Low 98-107 Carbon Dioxide > 45 mmol/L Critical high 21-32 Calcium 7.9 mg/dL Low 8.5-10.1 Total Protein 6.8 g/dL Normal 6.4-8.2 Albumin 3.3 g/dL Low 3.4-5.0 Globulin 3.5 g/dL Normal 1.9-4.3 Alb/Glob 0.9 ratio Bilirubin,Total 0.4 mg/dL Normal 0.2-1.0 Sgot/Ast 14 U/L Low 15-37 14 SGPT/Alt 10 U/L Low 12-78 15 Alkaline Phosphatase 66 U/L Normal 45-117 Iron-Tibc-%Sat 12/13/2018 [facility] Serum Iron 51 g/dL Normal 50-170 [address] [place] [address] [phone] Total Iron Binding Capacity 312 g/dL Normal 250-450 Transferrin %Saturation 16 % Normal 12-57 Laboratory test 12/13/2018 [facility] Ferritin 47 ng/mL Normal 8-252 16 finding [address] [place] [address] [phone] Vitamin B12 And 12/13/2018 [facility] Vitamin B12 514 pg/mL Normal 193-986 Folate [address] [place], [place] [address] [phone] Folic Acid 16.0 ng/mL Normal 3.1-17.5 CBC W/Automated 11/02/2018 [facility] White 6.2 K/uL Normal 3.1-10.7 17 Diff [address] [facility] [place] [address] Count [phone] Red Blood Count 4.13 M/uL Normal 3.90-5.40 Hemoglobin 12.8 gm/dL Normal 11.6-15.8 Hematocrit 39.6 % Normal 36.0-46.1 Mean Cell Volume 95.9 fl Normal 80.9-99.0 Mean Corpuscular HGB 31.0 pg Normal 25.9-32.7 Mean Corpuscular HGB Conc 32.3 g/dL Normal 30.8-34.3 Platelet Count 245 K/uL Normal 155-360 Red Cell Distri Width SD 45.7 fl Normal 36-47 Red Cell Distri Width %CV 12.9 % Normal 11.7-14.4 Mean Platelet Volume 11.6 fl Normal 8.9-12.4 Neut% 69.5 % Normal 40.4-72.8 Lymph % 18.2 % Low 20.0-42.0 Ashley % 9.5 % Normal 4.3-13.2 Eo% 2.3 % Normal 0.0-6.6 Bas% 0.3 % Normal 0.0-1.1 Immature Grans 0.2 % Normal 0.0-5.0 NRBC % 0.0 /100WBC < 10/ 100 WBC Neut# 4.33 K/uL Normal 1.8-7.0 Lymph # 1.13 K/uL Normal 1.0-4.0 Ashley # 0.59 K/uL Normal 0.3-0.9 Eos # 0.14 K/uL Normal 0.0-0.5 Baso # 0.02 K/uL Normal 0.0-0.1 Immature Grans Absolute 0.01 K/uL NRBC # 0.00 K/uL Comprehensive Metabolic 11/02/2018 [facility] Glucose 135 mg/dL High 74-106 Panel [address] [place], [place] [id number] [phone] BUN 12 mg/dL Normal 7-18 Creatinine 0.7 mg/dL Normal 0.6-1.3 Glom Filtration Rate, Estimate >60 mL/min >60 If >60 mL/min >60 18 BUN/Creat 17.1 ratio Sodium 129 mmol/L Low 136-145 Potassium 3.9 mmol/L Normal 3.5-5.1 Chloride 78 mmol/L Critical low 98-107 Carbon Dioxide 44 mmol/L Critical high 21-32 Anion Gap 7 mEq/L Low 8-16 Calcium 9.0 mg/dL Normal 8.5-10.1 Total Protein 8.3 g/dL High 6.4-8.2 Albumin 4.0 g/dL Normal 3.4-5.0 Globulin 4.3 g/dL Normal 1.9-4.3 Alb/Glob 0.9 ratio Bilirubin,Total 0.2 mg/dL Normal 0.2-1.0 Sgot/Ast 13 U/L Low 15-37 19 SGPT/Alt 16 U/L Normal 12-78 Alkaline Phosphatase 86 U/L Normal 45-117 Iron-Tibc-%Sat 11/02/2018 [facility] Serum Iron 34 g/dL Low 50-170 [address] [place], [place] [address] [phone] Total Iron Binding Capacity 452 g/dL High 250-450 Transferrin %Saturation 8 % Low 12-57 Laboratory test 11/02/2018 [facility] Ferritin 28 ng/mL Normal 8-252 finding [address] [place], [place] [address] [phone] Vitamin B12 And 11/02/2018 [facility] Vitamin B12 587 pg/mL Normal 193-986 Folate [address] [place], [place] [address] [phone] Folic Acid > 20.0 ng/mL High 3.1-17.5 1 J44.9 E86.0 R53.83 E61.1 E53.9 2 STAT SARITA VILLANUEVA SBA BUSINESS DEVELOPMENT OFFICER 3 J44.9,E86.0,R53.83, 4 Note: Persistent reduction for 3 months or more in an eGFR <60 mL/min/1.73 m2 defines CKD. Patients with eGFR values >/=60 mL/min/1.73 m2 may also have CKD if evidence of persistent proteinuria is present. The original MDRD equation for estimated GFR is not valid for patients less than 18 years of age. Additional information may be found at www.kdoqi.org. 5 Values below the stated reference ranges of AST and ALT can be seen in normal populations. Clinical correlation is suggested. 6 J44.9 E86.0 R53.83 E61.1 7 STAT CHECKED CALLED SETH Britton AT 1525 02/01/19 by [facility] 8 Note: Persistent reduction for 3 months or more in an eGFR <60 mL/min/1.73 m2 defines CKD. Patients with eGFR values >/=60 mL/min/1.73 m2 may also have CKD if evidence of persistent proteinuria is present. The original MDRD equation for estimated GFR is not valid for patients less than 18 years of age. Additional information may be found at www.kdoqi.org. 9 Values below the stated reference ranges of AST and ALT can be seen in normal populations. Clinical correlation is suggested. 10 Values below the stated reference ranges of AST and ALT can be seen in normal populations. Clinical correlation is suggested. 11 J96.12 12 J44.9 E86.0 R53.83 E61.1 13 Note: Persistent reduction for 3 months or more in an eGFR <60 mL/min/1.73 m2 defines CKD. Patients with eGFR values >/=60 mL/min/1.73 m2 may also have CKD if evidence of persistent proteinuria is present. The original MDRD equation for estimated GFR is not valid for patients less than 18 years of age. Additional information may be found at www.kdoqi.org. 14 Values below the stated reference ranges of AST and ALT can be seen in normal populations. Clinical correlation is suggested. 15 Values below the stated reference ranges of AST and ALT can be seen in normal populations. Clinical correlation is suggested. 16 CALLED CO2 MARGOTH Monahan AT 1145 12/13/18 by [facility] 17 J44.9 E86.0 E61.1 R53.83 18 Note: Persistent reduction for 3 months or more in an eGFR <60 mL/min/1.73 m2 defines CKD. Patients with eGFR values >/=60 mL/min/1.73 m2 may also have CKD if evidence of persistent proteinuria is present. The original MDRD equation for estimated GFR is not valid for patients less than 18 years of age. Additional information may be found at www.kdoqi.org. 19 Values below the stated reference ranges of AST and ALT can be seen in normal populations. Clinical correlation is suggested. Procedures Date Code Description Status 04/13/2013 83311046 Colonoscopy Completed 04/18/2012 [id number] Mammogram Completed 04/18/2010 [id number] Bone Mineral Density Test Completed 03/28/2000 [id number] Flexible Sigmoidoscopy Completed Medical Devices Description No Information Available Encounters Type Date Location Provider Dx Diagnosis Office Visit 02/20/2019 Pulmonology Shellie Mendieta PA J44.9 Chronic obstructive 1:00p pulmonary disease, unspecified J96.12 Chronic respiratory failure with hypercapnia R63.4 Abnormal weight loss F11.90 Opioid use, unspecified, uncomplicated R09.02 Hypoxemia Z87.891 Personal history of nicotine dependence Office Visit 02/01/2019 1:00p Infusion Center Sarita Villanueva E61.1 Iron deficiency B., SBA BUSINESS DEVELOPMENT OFFICER E53.9 Vitamin B deficiency, unspecified Office Visit 12/14/2018 11:20a Pulmonology Shellie Mendieta J44.9 Chronic obstructive PA pulmonary disease, unspecified J96.12 Chronic respiratory failure with hypercapnia R63.4 Abnormal weight loss F11.90 Opioid use, unspecified, uncomplicated Office Visit 11/02/2018 3:30p Infusion Center Sarita Villanueva E61.1 Iron deficiency B., SBA BUSINESS DEVELOPMENT OFFICER E53.9 Vitamin B deficiency, unspecified Assessments Date Code Description Provider 04/09/2019 E61.1 Iron deficiency Sarita Villanueva, SBA BUSINESS DEVELOPMENT OFFICER 04/09/2019 E53.9 Vitamin B deficiency, unspecified Sarita Villanueva, SBA BUSINESS DEVELOPMENT OFFICER 04/09/2019 F11.14 Opioid abuse with opioid-induced mood Sarita Villanueva, SBA BUSINESS DEVELOPMENT OFFICER disorder 03/18/2019 J96.22 Acute and chronic respiratory failure Favio Smith FNP with hypercapnia 03/18/2019 J44.1 Chronic obstructive pulmonary disease Favio Smith FNP with (acute) exacerbation 03/18/2019 F11.10 Opioid abuse, uncomplicated Favio Smith FNP 03/18/2019 E87.1 Hypo-osmolality and hyponatremia Sarah FavioGALO abebe 03/17/2019 J44.1 Chronic obstructive pulmonary disease KashifFavio garcia FNP with (acute) exacerbation 03/17/2019 F11.10 Opioid abuse, uncomplicated Favio SmithGALO 03/17/2019 E87.1 Hypo-osmolality and hyponatremia Maynor SmithGALO abebe 03/17/2019 J96.22 Acute and chronic respiratory failure KashifFavio garcia FNP with hypercapnia 03/16/2019 J44.1 Chronic obstructive pulmonary disease Minna Shah M.D. with (acute) exacerbation 03/16/2019 F11.10 Opioid abuse, uncomplicated Minna Shah M.D. 03/16/2019 E87.1 Hypo-osmolality and hyponatremia Minna Shah M.D. 03/16/2019 J96.22 Acute and chronic respiratory failure Minna Shah M.D. with hypercapnia 03/15/2019 J44.1 Chronic obstructive pulmonary disease Minna Shah M.D. with (acute) exacerbation 03/15/2019 F11.10 Opioid abuse, uncomplicated Minna Shah M.D. 03/15/2019 E87.1 Hypo-osmolality and hyponatremia Minna Shah M.D. 03/15/2019 J96.22 Acute and chronic respiratory failure Minna Shah M.D. with hypercapnia 03/14/2019 J96.02 Acute respiratory failure with KashifFavio garcia FNP hypercapnia 03/14/2019 J44.1 Chronic obstructive pulmonary disease KashifFavio garcia FNP with (acute) exacerbation 03/14/2019 F11.10 Opioid abuse, uncomplicated Sarah FavioGALO abebe 03/14/2019 E87.1 Hypo-osmolality and hyponatremia Favio Smith FNP 02/27/2019 J44.9 Chronic obstructive pulmonary disease, Elizabeth Dinero DO unspecified 02/27/2019 J44.9 Chronic obstructive pulmonary disease, Oncology Nurse unspecified 02/27/2019 E86.0 Dehydration Elizabeth Dinero DO 02/27/2019 E86.0 Dehydration Oncology Nurse 02/27/2019 R53.83 Other fatigue JoeElizabeth fuentes, DO 02/27/2019 R53.83 Other fatigue Oncology Nurse 02/20/2019 J44.9 Chronic obstructive pulmonary disease, Shellie Mendieta, PA unspecified 02/20/2019 J96.12 Chronic respiratory failure with Shellie Mendieta, PA hypercapnia 02/20/2019 R63.4 Abnormal weight loss Shellie Mendieta, PA 02/20/2019 F11.90 Opioid use, unspecified, uncomplicated Spencer Mendietamy, PA 02/20/2019 R09.02 Hypoxemia Spencer Mnedietamy, PA 02/20/2019 Z87.891 Personal history of nicotine dependence Shellie Mendieta, PA 02/01/2019 E61.1 Iron deficiency Sarita Villanueva, SBA BUSINESS DEVELOPMENT OFFICER 02/01/2019 E53.9 Vitamin B deficiency, unspecified Sarita Villanueva, SBA BUSINESS DEVELOPMENT OFFICER 12/14/2018 J44.9 Chronic obstructive pulmonary disease, Shellie Mendieta, PA unspecified 12/14/2018 J96.12 Chronic respiratory failure with [employer] abarcamy, PA hypercapnia 12/14/2018 R63.4 Abnormal weight loss Shellie Mendieta, PA 12/14/2018 F11.90 Opioid use, unspecified, uncomplicated Shellie Mendieta, PA 12/13/2018 J44.9 Chronic obstructive pulmonary disease, Elizabeth Dinero, DO unspecified 12/13/2018 J44.9 Chronic obstructive pulmonary disease, Oncology Nurse unspecified 12/13/2018 E86.0 Dehydration RosetteMarthat, DO 12/13/2018 E86.0 Dehydration Oncology Nurse 12/13/2018 R53.83 Other fatigue RosetteChandaElizabeth, DO 12/13/2018 R53.83 Other fatigue Oncology Nurse 11/21/2018 J96.01 Acute respiratory failure with hypoxia Angelita Rome M.D. 11/21/2018 R04.0 Epistaxis Angelita Rome M.D. 11/21/2018 J44.9 Chronic obstructive pulmonary disease, Angelita Rome M.D. unspecified 11/21/2018 F19.10 Other psychoactive substance abuse, Angelita Rome M.D. uncomplicated 11/20/2018 J96.01 Acute respiratory failure with hypoxia Aiden Ramos MD 11/20/2018 R04.0 Epistaxis Aiden Ramos MD 11/20/2018 J44.9 Chronic obstructive pulmonary disease, Aiden Ramos MD unspecified 11/20/2018 F19.10 Other psychoactive substance abuse, Aiden Ramos MD uncomplicated 11/02/2018 E61.1 Iron deficiency Sarita Villanueva, VIKTORIYA 11/02/2018 E53.9 Vitamin B deficiency, unspecified Sarita Villanueva, VIKTORIYA Plan of Treatment Future Appointment(s):05/16/2019 10:00 am - Elizabeth Dinero DO at Oncology [id number]/09/2019 - Sarita Villanueva, VIKTORIYAE61.1 Iron deficiencyComments:Iron studies will be repeated. Follow-up based on results.E53.9 Vitamin B deficiency , unspecifiedComments:Serum B12 levels will be checked today. Follow-up based on results.F11.14 Opioid abuse with opioid-induced mood disorderComments: Patient states that she is due to to enter an inpatient drug rehabilitation program "the next few days". We did discuss that this should not be delayed based on iron studies. Patient states that she will call the office to schedule a follow-up. Functional Status Functional Condition Comment Date Status Standard cane is used with the left hand to ambulate Active Oxygen Active Mental Status Description No Information Available Referrals Description No Information Available
[2019-05-08] MEDS ORDERED: Lidocaine 2% PF * 5 ML VIAL INJ ONE (10:11)
[2019-05-08 10:22] VITALS: BP 119/80
== END 2019-05-08 10:54 | disposition home or self-care (01) ==
LOC: UCCORT 09:41
DX: N76.4 Abscess of vulva (principal); E11.9 Type 2 diabetes mellitus without complications; I10 Essential (primary) hypertension; J44.9 Chronic obstructive pulmonary disease, unspecified; Z88.0 Allergy status to penicillin; Z88.8 Allergy status to other drugs, medicaments and biological substances; Z79.82 Long term (current) use of aspirin; Z87.891 Personal history of nicotine dependence; Z91.09 Other allergy status, other than to drugs and biological substances
CPT/HCPCS: 99212; G0463